=== PATIENT | female | born 1955 | race Asian ===

== ENCOUNTER 2020-05-12 11:24 | Emergency (ER) | payer BC, OTHER ==
[2020-05-12 11:33] VITALS: BP 116/69; PULSE 74; TEMP 97.4; BMI 19.3
[2020-05-12] MEDS ORDERED: diphenhydrAMINE HCL 25 MG CAPSULE (FP) PO ONE ×2 (11:52→12:13)
[2020-05-12] MEDS ORDERED: FAMOTIDINE 20 MG TABLET PO ONE (11:52)
[2020-05-12] MEDS ORDERED: predniSONE 20 MG TABLET (UD) PO ONE (11:52)
--- NOTE | 2020-05-12 11:58 | PDOC ---
History of Present Illness - General Chief Complaint: Rash Stated Complaint: RASH Time Seen by Provider: 05/12/20 11:45 History Source: Patient Exam Limitations: No Limitations - History of Present Illness Initial Comments: 05/12/20 11:53 Patient is a 64-year-old female who presents to the ED with complaint of a diffuse body rash that she has had for the last 2 days. She states the rash started after eating dinner on Wednesday but she has not eaten anything out of the ordinary. The only thing she can think of was peanuts that could have caused this. The patient has never had a peanut allergy in the past. She denies any new soaps, detergents, contacts, foods, body lotions. She denies any difficulty breathing or mouth/tongue swelling. She took Claritin yesterday with little relief. The patient denies any known medication allergies. She does admit to having seasonal allergies. Past History - Past History Allergies/Adverse Reactions: Allergies No Known Allergies Allergy (Verified 05/12/20 11:32) Home Medications: Ambulatory Orders Non-Formulary 12/08/11 Famotidine [Pepcid] 20 mg PO BID 5 Days #10 tablet 05/12/20 Fexofenadine HCl [Darlene Allergy] 180 mg PO DAILY 5 Days #5 tablet 05/12/20 predniSONE [Deltasone -] 60 mg PO DAILY 4 Days #12 tablet 05/12/20 - Social History Smoking History: No Smoking Status: Never smoked Number of Cigarettes Smoked Per Day: 0 Drug Use: none Review of Systems - Review of Systems Comments:: 05/12/20 11:54 - Review of Systems Able to Perform ROS?: Yes Constitutional: No: Fever, Chills, Loss of Appetite, Night Sweats, Weakness HEENTM: No: Eye Pain, Vision changes, Ear Pain, Throat Pain, Throat Swelling, Mouth Pain, Difficulty Swallowing Respiratory: No: Cough, Shortness of Breath, Wheezing, Sputum Production Cardiac (ROS): No: Chest Pain, Chest Tightness, Palpitations, Irregular Heart Beat, Edema ABD/GI: No: Nausea, Vomiting, Abdominal Pain, Diarrhea : No Dysuria, No Hematuria, No Frequency, No Urgency Musculoskeletal: No: Muscle Pain, Back Pain, Joint Pain, Muscle Weakness, Neck Pain Integumentary: No: Lesions, positive: Diffuse body urticaria Neurological: No: Headache, Numbness, Tingling, Weakness, Speech Difficulties *Physical Exam - Vital Signs Last Vital Signs Temp Pulse Resp BP Pulse Ox 97.4 F L 74 18 116/69 97 05/12/20 11:30 05/12/20 11:30 05/12/20 11:30 05/12/20 11:30 05/12/20 11:30 - Physical Exam 05/12/20 11:55 - Physical Exam General Appearance: Nourished, Appropriately Dressed, No Distress HEENT: EOMI, Normal Voice, No Pharyngeal Erythema, No Muffled/Hoarse voice, No Tonsillar Exudate, No Tonsillar Erythema, No Nasal Congestion, No Rhinorrhea, Hearing Grossly Normal, TMs Normal, No TM Bulging, No TM Dullness, No TM Erythema; no oropharyngeal edema or erythema appreciated. Uvula midline and without edema. No stridor. Airway patent. No mouth or lip swelling appreciated. Neck: Supple, No Lymphadenopathy (R), No Lymphadenopathy (L), No Rigidity, No De creased range of motion Respiratory/Chest: Lungs Clear, Normal Breath Sounds. No Respiratory Distress, No Accessory Muscle Use Cardiovascular: Regular Rhythm, Regular Rate, S1, S2 Gastrointestinal/Abdominal: Normal Bowel Sounds, Soft. Non-tender, No Guarding, No Rebound, No Rigidity Musculoskeletal: Normal Inspection. No Decreased Range of Motion Extremity: Normal Capillary Refill, Normal Inspection Integumentary: Normal Color, Dry. Diffuse body urticaria appreciated. No vesicles appreciated. No drainage. Neurologic: donor support technician II-XII NML intact, Fully Oriented, Alert, Normal Mood/Affect, Normal Response Medical Decision Making - Medical Decision Making 05/12/20 11:55 Assessment: Patient is a 64-year-old female with diffuse body urticaria from an unknown contact. Plan: -Pepcid, Benadryl, prednisone ordered -We will discharge the patient with a prescription for Pepcid, Benadryl and Darlene. We will refer her to dermatology for further evaluation and treatment. She understands and agrees with this treatment plan and the patient stable for discharge. Discharge - Discharge Information Problems reviewed: Yes Clinical Impression/Diagnosis: Urticaria Condition: Stable Disposition: HOME - Additional Discharge Information Prescriptions: Fexofenadine HCl [Darlene Allergy] 180 mg PO DAILY 5 Days #5 tablet predniSONE [Deltasone -] 60 mg PO DAILY 4 Days #12 tablet Famotidine [Pepcid] 20 mg PO BID 5 Days #10 tablet - Follow up/Referral Referrals: Lisa Price MD [Staff Physician] - - Patient Discharge Instructions Patient Printed Discharge Instructions: DI for Hives Additional Instructions: Be sure to take the medications as prescribed. Avoid any new soaps, detergents, foods until this has resolved completely. You should follow-up with dermatology for further evaluation and treatment and possible allergy testing. Referral to a general farmer has been given to you. Be sure to follow-up with your primary doctor within 1 to 2 days for repeat evaluation. Return to the emergency department immediately for any mouth, tongue or throat swelling, difficulty breathing or any other worsening symptoms. - Post Discharge Activity
[2020-05-12] MEDS ORDERED: FAMOTIDINE 20 MG TABLET ONE (12:13)
[2020-05-12] MEDS ORDERED: predniSONE 20 MG TABLET (UD) ONE (12:13)
== END 2020-05-12 12:49 | disposition home or self-care (01) ==
LOC: JERFT 11:24
DX: L50.0 Allergic urticaria (principal)
CPT/HCPCS: 99283-25

== ENCOUNTER 2022-04-25 09:18 | Emergency (ER) | payer OTHER ==
[2022-04-25 09:33] VITALS: BP 141/76; PULSE 86; RESP 16; TEMP 98.3; BMI 23.8
[2022-04-25] MEDS ORDERED: IBUPROFEN 600 MG TABLET (FP) PO ONE ×2 (09:38→09:42)
[2022-04-25] MEDS ORDERED: ACETAMINOPHEN 500 MG TABLET (FP) PO ONE (09:38)
== END 2022-04-25 10:08 | disposition home or self-care (01) ==
LOC: JER 09:18
DX: U07.1 COVID-19 (principal)
CPT/HCPCS: 0241U-QW; 99283-25